=== PATIENT | male | born 1985 | race Hispanic/Latino ===

== ENCOUNTER 2016-07-14 16:12 | Emergency (ER) | payer SELFPAY ==
[2016-07-14 16:13] VITALS: BMI 22.2
[2016-07-14 16:24] VITALS: BP 133/74; PULSE 80; RESP 16
--- NOTE | 2016-07-14 16:32 | ED PDOC ---
Arrival/HPI - General Chief Complaint: Lower Extremity Problem/Injury Time Seen by Provider: 07/14/16 16:25 Historian: Patient - History of Present Illness Narrative History of Present Illness (Text): 07/14/16 16:28 31yo male who present to ED with complaint of right knee pain s/p trauma yesterday. States he hyperextended his right leg, while playing basketball and he heard a "popping sound". Did not take any medication. came to ED for the worsening pain. Ambulating with a limp. Past Medical History - Provider Review Nursing Documentation Reviewed: Yes - Infectious Disease Hx of Infectious Diseases: None - Tetanus Immunization Tetanus Immunization: Up to Date - Past Medical History Past Medical History: No Previous - Psychiatric Hx Depression: No Hx Emotional Abuse: No Hx Physical Abuse: No Hx Substance Use: No - Past Surgical History Past Surgical History: No Previous - Anesthesia Hx Anesthesia: No - Suicidal Assessment Feels Threatened In Home Enviroment: No Family/Social History - Physician Review Nursing Documentation Reviewed: Yes Family/Social History: Unknown Family HX Smoking Status: Current Some Days Smoker Hx Alcohol Use: Yes Frequency of alcohol use: Socially Hx Substance Use: No Hx Substance Use Treatment: No Allergies/Home Meds Allergies/Adverse Reactions: Allergies shellfish derived Allergy (Verified 07/14/16 16:25) RASH Review of Systems - Physician Review All systems were reviewed & negative as marked: Yes - Review of Systems Constitutional: Normal Eyes: Normal ENT: Normal Respiratory: Normal Cardiovascular: Normal Gastrointestinal: Normal Genitourinary Male: Normal Musculoskeletal: Arthralgias (Right knee) Skin: Normal Neurological: Normal Endocrine: Normal Hemo/Lymphatic: Normal Psychiatric: Normal Physical Exam Vital Signs Reviewed: Yes Vital Signs Temp Pulse Resp BP Pulse Ox 07/14/16 17:14 16 98 07/14/16 17:00 98.0 F 80 16 99 07/14/16 16:20 99.2 F 80 16 133/74 98 Temperature: Afebrile Blood Pressure: Normal Pulse: Regular Respiratory Rate: Normal Appearance: Positive for: Well-Appearing, Non-Toxic, Comfortable Pain Distress: None Mental Status: Positive for: Alert and Oriented X 3 - Systems Exam Head: Present: Atraumatic, Normocephalic Pupils: Present: PERRL Extroacular Muscles: Present: EOMI Conjunctiva: Present: Normal Mouth: Present: Moist Mucous Membranes Neck: Present: Normal Range of Motion Respiratory/Chest: Present: Clear to Auscultation, Good Air Exchange. No: Respiratory Distress, Accessory Muscle Use Cardiovascular: Present: Regular Rate and Rhythm, Normal S1, S2. No: Murmurs Abdomen: Present: Normal Bowel Sounds. No: Tenderness, Distention, Peritoneal Signs Back: Present: Normal Inspection Upper Extremity: Present: Normal Inspection. No: Cyanosis, Edema Lower Extremity: Present: NORMAL PULSES, Tenderness (Right superior medial right knee), Swelling (Superior medial right knee with overlaying tenderness with palpation), Neurovascularly Intact, Capillary Refill < 2 s. No: Edema, Cyanosis, Normal ROM (Limited on flexion secondary to pain), Erythema, Deformity , Temperature Abnormalties Neurological: Present: GCS=15, CN II-XII Intact, Speech Normal Skin: Present: Warm, Dry, Normal Color. No: Rashes Psychiatric: Present: Alert, Oriented x 3, Normal Insight, Normal Concentration Medical Decision Making ED Course and Treatment: 07/14/16 16:55 Right knee xray - No acute fracture/dislocation noted Knee immobilizer placed and crutches given Advised to RICE knee. Referred to orthopedist TRT ED for any new or worsening symptoms - RAD Interpretation Radiology Orders: 07/14/16 16:34 KNEE W PATELLA RIGHT 3 VIEW [RAD] Stat - Medication Orders Current Medication Orders: Discontinued Medications Ketorolac Tromethamine (Toradol) 60 mg IM STAT STA Stop: 07/14/16 16:34 Last Admin: 07/14/16 17:11 Dose: 60 MG IM Administration Charges Document 07/14/16 17:11 [email or web address] (Rec: 07/14/16 17:11 [email or web address] [facility]- TRACK2) Injection Site MAR Injection Site Right Gluteus Jeovanny Charges for Administration # of IM Administrations 1 Disposition/Present on Arrival - Present on Arrival Any Indicators Present on Arrival: No History of DVT/PE: No History of Uncontrolled Diabetes: No Urinary Catheter: No History of Decub. Ulcer: No History Surgical Site Infection Following: None - Disposition Have Diagnosis and Disposition been Completed?: Yes Diagnosis: Knee sprain Disposition: HOME/ ROUTINE Disposition Time: 17:00 Patient Plan: Discharge Condition: STABLE Discharge Instructions (ExitCare): Knee Sprain (ED) Additional Instructions: Rest, ice, compress and elevate right knee Follow up with your Doctor/Orthopedist Return to ED for any new or worsening symptoms Prescriptions: Ibuprofen [Motrin Tab] 600 mg PO Q6 #20 tab Referrals: Brant Lucero III, MD [Medical Doctor] - Follow up with primary
[2016-07-14 17:01] VITALS: TEMP 98
[2016-07-14 17:15] VITALS: O2SAT 98
--- NOTE | 2016-07-15 09:45 | RAD ---
PROCEDURE: Right Knee Radiographs. HISTORY: knee pain s/p trauma COMPARISON: None. FINDINGS: BONES: Normal. No fracture. JOINTS: Normal. No osteoarthritis. JOINT EFFUSION: Suprapatellar effusion, moderate. OTHER FINDINGS: None. IMPRESSION: Suprapatellar joint effusion, no acute osseous findings.
== END 2016-07-14 17:15 | disposition home or self-care (01) ==
LOC: ED 16:12
DX: S83.91XA Sprain of unspecified site of right knee, initial encounter (principal); X50.0XXA Overexertion from strenuous movement or load, initial encounter; Y93.67 Activity, basketball; Y92.39 Other specified sports and athletic area as the place of occurrence of the external cause
CPT/HCPCS: 73562; 96372; 99283; J1885